=== PATIENT | male | born 1985 | race Caucasian/White ===

== ENCOUNTER 2021-04-11 02:59 | Observation (INO) | payer OTHER ==
[2021-04-11] MEDS ORDERED: VANCOMYCIN IV PER PHARMACY 1 EACH MISC MISCELLANE PRN (03:24)
[2021-04-11] MEDS ORDERED: AMPICILLIN-SULBACTAM 3 GM in SODIUM CHLORIDE 0.9% 100 ML IVPB STA (03:25)
[2021-04-11] MEDS ORDERED: VANCOMYCIN 1,250 MG in SODIUM CHLORIDE 0.9% 250 ML IVPB ONE (04:00)
[2021-04-11 04:17] LABS: Basophils # (A) 0.1 k/uL (0-0.2); Basophils % (A) 1 %; Eosinophils # (A) 0.4 k/uL (0-0.7); Eosinophils % (A) 4 %; HCT 44.9 % (39.0-53.0); HGB 14.6 gm/dL (13.0-17.5); Lymphocytes # (A) 2.6 k/uL (1.0-4.8); Lymphocytes % (A) 26 %; MCH 31.8 pg (25.0-35.0); MCHC 32.5 g/dL (31.0-37.0); MCV 97.6 fL (80.0-100.0); Mean Platelet Volume 7.9; Monocytes # (A) 0.6 k/uL (0-1.0); Monocytes % (A) 6 %; Neutrophils # (A) 6.3 k/uL (1.3-7.7); Neutrophils % (A) 62 %; Platelet Count 284 k/uL (150-450); RDW 13.1 % (11.5-15.5); WBC 10.1 k/uL (3.8-10.6)
[2021-04-11] MEDS ORDERED: MORPHINE SULFATE 4 MG/ML SYRINGE IV STA (04:21)
[2021-04-11] MEDS ORDERED: NALOXONE 0.4 MG/ML 1 ML VIAL IV PRN (04:22)
[2021-04-11] MEDS ORDERED: HYDROcodone/APAP 5-325MG 1 EACH TAB PO PRN (04:22)
[2021-04-11] MEDS ORDERED: ACETAMINOPHEN TAB 325 MG TAB PO PRN (04:22)
[2021-04-11] MEDS ORDERED: ONDANSETRON 4 MG/2 ML VIAL IVP PRN (04:22)
[2021-04-11] MEDS ORDERED: SODIUM CHLORIDE 0.9% 1,000 ML IV SCH (04:30)
[2021-04-11 04:36] LABS: Calcium 8.9 mg/dL (8.4-10.2); Potassium 4.2 mmol/L (3.5-5.1)
[2021-04-11 05:50] LABS: Erythrocyte Sedimentation Rate 8 mm/hr (0-15)
[2021-04-11 08:02] VITALS: BP 111/73; PULSE 71; RESP 16; TEMP 98.7
[2021-04-11] MEDS ORDERED: FAMOTIDINE 20 MG TAB PO SCH (09:00)
[2021-04-11] MEDS ORDERED: VANCOMYCIN 1,250 MG in SODIUM CHLORIDE 0.9% 250 ML IVPB SCH (16:00)
--- NOTE | 2021-04-11 18:08 | P.HPIM ---
History of Present Illness Patient left AGAINST MEDICAL ADVICE and before I had a chance to evaluate the patient Past Medical History Past Medical History: No Reported History History of Any Multi-Drug Resistant Organisms: None Reported Past Surgical History: Appendectomy, Hernia Repair Past Anesthesia/Blood Transfusion Reactions: No Reported Reaction Past Psychological History: No Psychological Hx Reported Smoking Status: Current every day smoker Past Alcohol Use History: None Reported Past Drug Use History: Marijuana Medications and Allergies Home Medications Medication Instructions Recorded Confirmed Type No Known Home Medications 04/11/21 04/11/21 History Allergies Allergy/AdvReac Type Severity Reaction Status Date / Time haloperidol [From Haldol] Allergy Swelling Verified 04/11/21 09:43 Physical Exam Vitals: Vital Signs Temp Pulse Pulse Pulse Resp BP BP 04/11/21 07:00 98.7 F 71 16 111/73 04/11/21 05:00 98.4 F 64 15 131/81 04/11/21 04:42 76 16 122/66 04/11/21 03:01 98.1 F 80 20 125/86 Pulse Ox 04/11/21 07:00 98 04/11/21 05:00 97 04/11/21 04:42 100 04/11/21 03:01 100 Intake and Output 04/11/21 04/11/21 04/11/21 06:59 14:59 22:59 Other: # Voids 0 Weight 74.843 kg Results CBC & Chem 7: 04/11/21 03:45 04/11/21 03:45 Labs: Microbiology - Last 24 Hours (Table) 04/11/21 03:45 Wound Culture - Preliminary Arm - Left Thrombosis Risk Factor Assmnt - Choose All That Apply Any of the Below Risk Factors Present?: No Other Risk Factors: No Other congenital or acquired thrombophilia - If yes, enter type in comment: No Thrombosis Risk Factor Assessment Level: Very Low Risk
--- NOTE | 2021-04-11 18:08 | P.DS ---
Providers Date of admission: 04/11/21 04:22 Attending physician: Raoul Gong Consults: 04/11/21 04:24 Consult Physician Routine Consulting Provider: Nathan Castillo Consult Reason/Comments: Left forearm infection Do you want consulting provider notified?: Yes Primary care physician: Stated None Hospital Course: Patient left AMA Patient Condition at Discharge: Stable Plan - Discharge Summary Discharge Rx Participant: No New Discharge Prescriptions: No Action No Known Home Medications Discharge Medication List No Known Home Medications 04/11/21 [History] Follow up Appointment(s)/Referral(s): None,Stated [Primary Care Provider] - 1 Week Discharge Disposition: Left Against Medical Advice
== END 2021-04-11 11:27 | disposition left against medical advice (07) ==
LOC: EC 02:59 → 6NMEDSUR 04:22
PROVIDERS: ADMIT Internal Medicine; ATTEND Internal Medicine
DX: L08.89 Other specified local infections of the skin and subcutaneous tissue (principal); Z53.21 Procedure and treatment not carried out due to patient leaving prior to being seen by health care provider; F17.200 Nicotine dependence, unspecified, uncomplicated; Z90.49 Acquired absence of other specified parts of digestive tract; Z88.8 Allergy status to other drugs, medicaments and biological substances; Z87.19 Personal history of other diseases of the digestive system; Z86.59 Personal history of other mental and behavioral disorders
CPT/HCPCS: 99284; 96365; 96366; 96375; 36415; 80048; 85652; 83605; 85025; 87040; 87070; 87205; 87077; 87186; G0378; J3370; J2270; J0295

== ENCOUNTER 2021-04-12 05:36 | Observation (INO) | payer OTHER ==
[2021-04-12] MEDS ORDERED: VANCOMYCIN IV PER PHARMACY 1 EACH MISC MISCELLANE PRN (06:17)
[2021-04-12] MEDS ORDERED: VANCOMYCIN 1,250 MG in SODIUM CHLORIDE 0.9% 250 ML IVPB STA (06:18)
[2021-04-12] MEDS ORDERED: AMPICILLIN-SULBACTAM 3 GM in SODIUM CHLORIDE 0.9% 100 ML IVPB STA (06:18)
--- NOTE | 2021-04-12 06:30 | ED ---
Extremity Problem HPI - General Chief complaint: Extremity Problem,Nontraumatic Stated complaint: Recheck lt hand injury Time Seen by Provider: 04/12/21 06:05 Source: patient Mode of arrival: wheelchair - History of Present Illness Initial comments: Patient is a 36-year-old male presenting to the emergency department for a recheck of a wound on his left wrist. Patient was admitted yesterday for the same complaint but he left AMA before he was evaluated by the hospitalist. P atient states his pain has continued in his back and he states he will not leave again. Patient states he noticed this abscess develop about 4-5 days ago, he believes is from a spider bite. Patient was seen at [facility] on 2 separate occasions, they did do an I&D as well as antibiotics. He presented yesterday for increased pain and swelling. He was given some IV antibiotics before he left AMA. He denies any fevers or chills. Denies any chest pain or shortness of breath, no nausea or vomiting. He has no further complaints. His vitals are stable upon arrival, afebrile. - Related Data Home Medications Medication Instructions Recorded Confirmed No Known Home Medications 04/11/21 04/11/21 Allergies Allergy/AdvReac Type Severity Reaction Status Date / Time haloperidol [From Haldol] Allergy Swelling Verified 04/12/21 05:43 Review of Systems ROS Statement: Those systems with pertinent positive or pertinent negative responses have been documented in the HPI. ROS Other: All systems not noted in ROS Statement are negative. Past Medical History Past Medical History: No Reported History History of Any Multi-Drug Resistant Organisms: None Reported Past Surgical History: Appendectomy, Hernia Repair Past Anesthesia/Blood Transfusion Reactions: No Reported Reaction Past Psychological History: No Psychological Hx Reported Smoking Status: Current every day smoker Past Alcohol Use History: None Reported Past Drug Use History: Marijuana General Exam - General Exam Comments Initial Comments: GENERAL: Patient is well-developed and well-nourished. Patient is nontoxic and in no acute distress. HEAD: Atraumatic, normocephalic. EYES: Pupils equal round and reactive to light, extraocular movements intact, sclera anicteric, conjunctiva are normal. Eyelids were unremarkable. LUNGS: Unlabored respirations. Breath sounds clear to auscultation bilaterally and equal. No wheezes rales or rhonchi. HEART: Regular rate and rhythm without murmurs, rubs or gallops. ABDOMEN: Soft, nontender, normoactive bowel sounds. MUSCULOSKELETAL: Normal extremities with adequate strength and normal range of motion, no pitting or edema. No clubbing or cyanosis. NEUROLOGICAL: Patient is alert and oriented x 3. PSYCH: Normal mood, normal affect. SKIN: Warm, Dry, normal turgor, no rashes. Patient has a 3 cm abscess noted to the left wrist with drainage, pain surrounding. There is some mild erythema noted as well. Course Vital Signs 04/12/21 05:40 Temperature 97.6 F Pulse Rate 85 Respiratory 18 Rate Blood Pressure 108/72 O2 Sat by Pulse 98 Oximetry Medical Decision Making - Medical Decision Making Patient is a 36-year-old male here for an abscess to his left wrist for the past 4-5 days. He was seen here yesterday and admitted however he left AMA prior to hospitalist evaluation. He did receive a dose of vanco and Unasyn. Patient states he woke up yesterday and did not realize where he was and wanted to leave. He states he'll not leave this time. He understands that he needs to get this fixed. Patient will be started on IV antibiotics and admitted for surgical consult. Patient accepted by Dr. Gong. Patient is agreeable to this plan of care. Case discussed with Dr. Maldonado. - Lab Data Result diagrams: 04/12/21 06:41 Lab Results 04/12/21 Range/Units 06:41 WBC 8.3 (3.8-10.6) k/uL RBC 4.80 (4.30-5.90) m/uL Hgb 14.8 (13.0-17.5) gm/dL Hct 46.3 (39.0-53.0) % MCV 96.4 (80.0-100.0) fL MCH 30.8 (25.0-35.0) pg MCHC 32.0 (31.0-37.0) g/dL RDW 13.0 (11.5-15.5) % Plt Count 324 (150-450) k/uL MPV 7.4 Neutrophils % 61 % Lymphocytes % 27 % Monocytes % 5 % Eosinophils % 5 % Basophils % 1 % Neutrophils # 5.1 (1.3-7.7) k/uL Lymphocytes # 2.2 (1.0-4.8) k/uL Monocytes # 0.4 (0-1.0) k/uL Eosinophils # 0.4 (0-0.7) k/uL Basophils # 0.1 (0-0.2) k/uL Disposition Clinical Impression: Abscess of skin of left wrist, Failure of outpatient treatment Disposition: ADMITTED IP TO THIS [facility] Condition: Stable Referrals: None,Stated [Primary Care Provider] - 1-2 days Decision Date: 04/12/21 Decision Time: 07:08
[2021-04-12 07:01] LABS: Basophils # (A) 0.1 k/uL (0-0.2); Basophils % (A) 1 %; Eosinophils # (A) 0.4 k/uL (0-0.7); Eosinophils % (A) 5 %; HCT 46.3 % (39.0-53.0); HGB 14.8 gm/dL (13.0-17.5); Lymphocytes # (A) 2.2 k/uL (1.0-4.8); Lymphocytes % (A) 27 %; MCH 30.8 pg (25.0-35.0); MCV 96.4 fL (80.0-100.0); Mean Platelet Volume 7.4; Monocytes # (A) 0.4 k/uL (0-1.0); Monocytes % (A) 5 %; Neutrophils # (A) 5.1 k/uL (1.3-7.7); Neutrophils % (A) 61 %; Platelet Count 324 k/uL (150-450); WBC 8.3 k/uL (3.8-10.6)
[2021-04-12] MEDS ORDERED: NALOXONE 0.4 MG/ML 1 ML VIAL IV PRN (07:05)
[2021-04-12] MEDS ORDERED: traMADol 50 MG TAB PO PRN (07:05)
[2021-04-12] MEDS ORDERED: ONDANSETRON 4 MG/2 ML VIAL IVP PRN (07:05)
[2021-04-12] MEDS ORDERED: ACETAMINOPHEN TAB 325 MG TAB PO PRN (07:05)
[2021-04-12 07:34] LABS: ALT 14 U/L (4-49); AST 23 U/L (17-59); African American GFR (CKD) >90 (>60 ml/min/1.73 sqM); Albumin 3.9 g/dL (3.5-5.0); Alkaline Phosphatase 85 U/L (38-126); Anion Gap 8 mmol/L; Blood Urea Nitrogen 15 mg/dL (9-20); Calcium 9.4 mg/dL (8.4-10.2); Carbon Dioxide 27 mmol/L (22-30); Chloride 103 mmol/L (98-107); Glucose 159 mg/dL (74-99); Non-African American GFR(CKD) >90 (>60 ml/min/1.73 sqM); Potassium 3.9 mmol/L (3.5-5.1); Sodium 138 mmol/L (137-145); Total Bilirubin 0.1 mg/dL (0.2-1.3); Total Protein 6.7 g/dL (6.3-8.2)
[2021-04-12 08:04] LABS: C Reactive Protein 1.4 mg/dL (<1.0)
[2021-04-12 08:31] LABS: Erythrocyte Sedimentation Rate 7 mm/hr (0-15)
[2021-04-12] MEDS ORDERED: KETOROLAC 15 MG/ML 1 ML VIAL IVP PRN (10:20)
[2021-04-12] MEDS: MORPHINE SULFATE 4 MG/ML SYRINGE IVP PRN ×2 (11:08→15:08)
--- NOTE | 2021-04-12 11:37 | P.DS ---
Providers Date of admission: 04/12/21 07:09 Attending physician: Raoul Gong Consults: 04/12/21 07:06 Consult Physician Urgent Consulting Provider: Nathan Castillo Consult Reason/Comments: Abscess of the left wrist, failed outpatient treatment Do you want consulting provider notified?: Yes 04/12/21 11:32 Consult Physician Routine Consulting Provider: Giovani Bates Consult Reason/Comments: Wrist abscess Do you want consulting provider notified?: Yes Primary care physician: Stated None Hospital Course: Patient will 36-year-old male came in with abscess in the left wrist he denied using any IV drugs. 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 Patient had another abscess in one of the right hand web spaces. Because of multiple tattoos I can't really see any needle mueller. Patient was here yesterday for the same thing and left AGAINST MEDICAL ADVICE. apparently had incision and drainage in couple occasions at [facility]. Patient's and says that he doesn't use any drugs. Although his he did get [place] as today I'm ordering a urine drug screen is opiates can be positive because of that reason. Patient denied any history of hepatitis. We'll cultures from abscesses that were done from yesterday are showing MRSA because of which patient was started on vancomycin and consulting infectious disease and surgery was consulted patient has an abscess in the wrist joint area ventral aspect which has active purulent drainage. REVIEW OF SYSTEMS: CONSTITUTIONAL: No fever, no malaise, no fatigue. HEENT: No recent visual problems or hearing problems. Denied any sore throat. CARDIOVASCULAR: No chest pain, orthopnea, PND, no palpitations, no syncope. PULMONARY: No shortness of breath, no cough, no hemoptysis. GASTROINTESTINAL: No diarrhea, no nausea, no vomiting, no abdominal pain. NEUROLOGICAL: No headaches, no weakness, no numbness. HEMATOLOGICAL: Denies any bleeding or petechiae. GENITOURINARY: Denies any burning micturition, frequency, or urgency. MUSCULOSKELETAL/RHEUMATOLOGICAL: Denies any joint pain, swelling, or any muscle pain. ENDOCRINE: Denies any polyuria or polydipsia. The rest of the 14-point review of systems is negative. PHYSICAL EXAMINATION: GENERAL: The patient is alert and oriented x3, not in any acute distress. Well developed, well nourished. HEENT: Pupils are round and equally reacting to light. EOMI. No scleral icterus. No conjunctival pallor. Normocephalic, atraumatic. No pharyngeal erythema. No thyromegaly. CARDIOVASCULAR: S1 and S2 present. No murmurs, rubs, or gallops. PULMONARY: Chest is clear to auscultation, no wheezing or crackles. ABDOMEN: Soft, nontender, nondistended, normoactive bowel sounds. No palpable organomegaly. MUSCULOSKELETAL: No joint swelling or deformity. EXTREMITIES: No cyanosis, clubbing, or pedal edema. NEUROLOGICAL: Gross neurological examination did not reveal any focal deficits. SKIN: Abscess as mentioned above a small abscess with purulent drainage Assessment and plan -Wrist abscess: Denies any evident abuse or any other street drugs. Patient was started on Toradol as well as morphine for pain and patient will continued on vancomycin discussed with Gen. surgery patient will need incision and drainage infectious disease was consulted. Patient doesn't have fever or leukocytosis -Nicotine use: Counseling was provided DVT prophylaxis: Ambulation Patient Condition at Discharge: Stable Plan - Discharge Summary New Discharge Prescriptions: No Action No Known Home Medications Discharge Medication List No Known Home Medications 04/11/21 [History] Follow up Appointment(s)/Referral(s): None,Stated [Primary Care Provider] - 1-2 days
[2021-04-12 11:59] LABS: Amphetamine Screen,Urine Not Detected (NotDetected); Barbiturate Screen,Urine Not Detected (NotDetected); Benzodiazepines Screen,Urine Not Detected (NotDetected); Cocaine Screen,Urine Not Detected (NotDetected); Methadone Screen, Urine Not Detected (NotDetected); Opiate Screen,Urine Detected (NotDetected); Oxycodone Screen, Urine Not Detected (NotDetected); Phencyclidine Screen,Urine Not Detected (NotDetected); Tricyclic Antidepressant,Urine Not Detected (NotDetected); Urn Cannabinoid Scrn Detected (NotDetected)
[2021-04-12 14:48] VITALS: BP 118/61; PULSE 71; RESP 17; TEMP 97.9
[2021-04-12] MEDS ORDERED: VANCOMYCIN 1,250 MG in SODIUM CHLORIDE 0.9% 250 ML IVPB SCH (16:00)
[2021-04-13] MEDS ORDERED: VANCOMYCIN TROUGH DUE 1 EACH MISC MISCELLANE ONE (07:00)
== END 2021-04-12 18:53 | disposition left against medical advice (07) ==
LOC: EC 05:36 → 6NMEDSUR 07:09
PROVIDERS: ADMIT Internal Medicine; ATTEND Internal Medicine
DX: L02.414 Cutaneous abscess of left upper limb (principal); B95.62 Methicillin resistant Staphylococcus aureus infection as the cause of diseases classified elsewhere; F17.200 Nicotine dependence, unspecified, uncomplicated; Z53.29 Procedure and treatment not carried out because of patient's decision for other reasons; Z88.8 Allergy status to other drugs, medicaments and biological substances; Z86.59 Personal history of other mental and behavioral disorders; Z90.49 Acquired absence of other specified parts of digestive tract
CPT/HCPCS: 96376; 96366; 96367; 96375; 96365; 99284; 36415; 80053; 85652; 85025; 86140; 80306; G0378; J3370; J2270; J0295; J1885

== ENCOUNTER 2021-06-20 20:56 | Emergency (ER) | payer OTHER ==
[2021-06-20 21:10] VITALS: BP 152/106; PULSE 68; RESP 18
--- NOTE | 2021-06-20 21:34 | XR ---
EXAMINATION TYPE: XR abdomen acute w cxr DATE OF EXAM: 06/20/2021 COMPARISON: 02/04/2010 HISTORY: Swallowed razor blades TECHNIQUE: 3 views FINDINGS: Heart and mediastinum are normal. Lungs are clear. Bowel gas pattern is normal. There is no sign of intestinal obstruction or pneumoperitoneum. There is small linear metallic density projected over the gastric fundus that could be reasonably foreign body. This measures 12 mm in length. There is slight thoracolumbar levoscoliosis. Bony pelvis is intact. IMPRESSION: Small metallic foreign body in the gastric fundus. Nonacute bowel gas pattern. Normal [address]
--- NOTE | 2021-06-20 22:38 | ED ---
General Adult HPI - General Chief complaint: Psychiatric Symptoms Stated complaint: Swallowed foreign object Time Seen by Provider: 06/20/21 21:19 Source: police Mode of arrival: ambulatory - History of Present Illness Initial comments: This patient is a 36-year-old male transferred here from the [facility] where he had reported to staff that he swallowed a razor blade proximally 2 hours ago now (at 8pm). The patient indicates he is having a little bit of right upper quadrant pain. He states that it is at this point minimal. Denies any worsening or relieving factors. Describes a sharp. No nausea or vomiting. No change in bowel movements or urination. No fever or chills noted. Onset/Timin -: hour(s) Location: abdomen Radiation: non-radiation Quality: sharp Consistency: constant Improves with: none Worsens with: none Associated Symptoms: denies other symptoms Treatments Prior to Arrival: none - Related Data Home Medications Medication Instructions Recorded Confirmed No Known Home Medications 04/11/21 04/12/21 Allergies Allergy/AdvReac Type Severity Reaction Status Date / Time haloperidol [From Haldol] Allergy Swelling Verified 06/20/21 21:10 Review of Systems ROS Statement: Those systems with pertinent positive or pertinent negative responses have been documented in the HPI. ROS Other: All systems not noted in ROS Statement are negative. Constitutional: Denies: fever, chills ENT: Denies: throat pain Respiratory: Denies: cough, dyspnea Cardiovascular: Denies: chest pain, palpitations Gastrointestinal: Reports: as per HPI, abdominal pain. Denies: nausea, vomiting, diarrhea, constipation Genitourinary: Denies: dysuria, hematuria Musculoskeletal: Denies: back pain Skin: Denies: rash Neurological: Denies: headache Hematological/Lymphatic: Denies: easy bleeding Past Medical History Past Medical History: No Reported History History of Any Multi-Drug Resistant Organisms: MRSA Date of last positivie culture/infection: 04/11/21 MDRO Source:: Left Arm Past Surgical History: Appendectomy, Hernia Repair Past Anesthesia/Blood Transfusion Reactions: No Reported Reaction Past Psychological History: No Psychological Hx Reported Smoking Status: Current every day smoker Past Alcohol Use History: None Reported Past Drug Use History: Marijuana General Exam General appearance: alert, in no apparent distress Head exam: Present: atraumatic, normocephalic Eye exam: Present: normal appearance. Absent: scleral icterus, conjunctival injection ENT exam: Present: normal oropharynx Neck exam: Present: normal inspection Respiratory exam: Present: normal lung sounds bilaterally. Absent: respiratory distress, wheezes, rales, rhonchi, stridor Cardiovascular Exam: Present: regular rate, normal rhythm, normal heart sounds. Absent: systolic murmur, diastolic murmur, rubs, gallop GI/Abdominal exam: Present: soft, normal bowel sounds. Absent: distended, tenderness, guarding, rebound, rigid, mass, pulsatile mass Extremities exam: Present: normal inspection, normal capillary refill. Absent: pedal edema, calf tenderness Back exam: Present: normal inspection. Absent: CVA tenderness (R), CVA tenderness (L) Neurological exam: Present: alert Skin exam: Present: warm, dry, intact, normal color. Absent: rash Course Vital Signs 06/20/21 21:06 Pulse Rate 68 Respiratory 18 Rate Blood Pressure 152/106 O2 Sat by Pulse 100 Oximetry Medical Decision Making - Medical Decision Making 36-year-old man reporting that he swallowed razor blade. Patient is sent for plain films which revealed metallic foreign body. Case is discussed with surgery on-call as there is no gastroenterology on-call. They do recommend transfer for EGD. Case also discussed with Dr. Angel as [facility] discussed with [facility] team at [facility] and Dr. Quinones will accept transfer for GI Disposition Clinical Impression: Foreign body in stomach Disposition: OTHER INSTITUTION NOT DEFINED Condition: Fair Is patient prescribed a controlled substance at d/c from ED?: No Referrals: None,Stated [Primary Care Provider] - 1-2 days
== END 2021-06-21 00:10 | disposition other institution (70) ==
LOC: EC 20:56
DX: T18.2XXA Foreign body in stomach, initial encounter (principal); F17.200 Nicotine dependence, unspecified, uncomplicated; F12.90 Cannabis use, unspecified, uncomplicated; Z20.822 Contact with and (suspected) exposure to COVID-19; X58.XXXA Exposure to other specified factors, initial encounter
CPT/HCPCS: 74022; 87635; 99284

== ENCOUNTER 2024-12-04 19:04 | Inpatient (IN) | payer OTHER ==
[2024-12-04] MEDS: LORazepam 2 MG/ML INJ IM STA (19:06)
--- NOTE | 2024-12-04 19:11 | ED ---
Overdose HPI - General Stated Complaint: Overdose Time Seen by Provider: 12/04/24 19:10 Source: RN notes reviewed, old records reviewed Limitations: altered mental status, physical limitation - History of Present Illness Initial Comments: This is a 39-year-old male who allegedly took overdose of Seroquel 70+ pills. Full bottle as a suicide attempt Patient is completely altered here in the emergency department tachycardic aggressive and agitated MD Complaint: intentional overdose -: unknown How Overdose Was Discovered: called family/friend, called 911 Context: Accidental Overdose: wanted to get high Associated Symptoms: depression Treatments Prior to Arrival: none - Related Data Home Medications Medication Instructions Recorded Confirmed Buprenorphine HCl/Naloxone HCl 1 film SL BID 12/04/24 12/04/24 [Suboxone 8 mg-2 mg Sl Film] Venlafaxine HCl [Effexor] 225 mg PO DIRECTED 12/04/24 12/04/24 Vistaril(Unknown Dose) 1 dose PO DIRECTED 12/04/24 12/04/24 Allergies Allergy/AdvReac Type Severity Reaction Status Date / Time haloperidol [From Haldol] Allergy Swelling Verified 12/04/24 20:09 tongue fluphenazine [From Prolixin] AdvReac Unknown Verified 12/08/24 23:20 Review of Systems ROS Statement: Those systems with pertinent positive or pertinent negative responses have been documented in the HPI. ROS Other: All systems not noted in ROS Statement are negative. Past Medical History Past Medical History: No Reported History History of Any Multi-Drug Resistant Organisms: MRSA Date of last positivie culture/infection: 04/11/21 MDRO Source:: Left Arm Past Surgical History: Appendectomy, Hernia Repair Past Anesthesia/Blood Transfusion Reactions: No Reported Reaction Past Psychological History: No Psychological Hx Reported Smoking Status: Current every day smoker Past Alcohol Use History: None Reported Past Drug Use History: Marijuana General Exam Limitations: altered mental status, physical limitation General appearance: alert, anxious, in distress Head exam: Present: atraumatic, normocephalic, normal inspection Eye exam: Present: normal appearance, PERRL, EOMI. Absent: scleral icterus, c onjunctival injection, periorbital swelling ENT exam: Present: normal exam, mucous membranes moist Neck exam: Present: normal inspection. Absent: tenderness, meningismus, lymphadenopathy Respiratory exam: Present: normal lung sounds bilaterally. Absent: respiratory distress, wheezes, rales, rhonchi, stridor Cardiovascular Exam: Present: tachycardia, irregular rhythm, normal heart sounds. Absent: systolic murmur, diastolic murmur, rubs, gallop, clicks GI/Abdominal exam: Present: soft, normal bowel sounds. Absent: distended, tenderness, guarding, rebound, rigid Extremities exam: Present: normal inspection, full ROM, normal capillary refill. Absent: tenderness, pedal edema, joint swelling, calf tenderness Back exam: Present: normal inspection Neurological exam: Present: alert, oriented X3, CN II-XII intact Psychiatric exam: Present: normal affect, normal mood Skin exam: Present: warm, dry, intact, normal color. Absent: rash Course Vital Signs 12/04/24 12/04/24 12/04/24 19:09 19:27 20:45 Temperature 97.7 F Pulse Rate 152 H 126 H Respiratory 22 16 Rate Blood Pressure 126/98 130/90 O2 Sat by Pulse 99 Oximetry 12/04/24 12/04/24 12/04/24 20:57 21:09 21:58 Temperature Pulse Rate 130 H 138 H 138 H Respiratory 18 18 18 Rate Blood Pressure 130/90 130/101 134/90 O2 Sat by Pulse 96 98 98 Oximetry 12/05/24 12/05/24 12/05/24 00:34 01:37 03:39 Temperature 98.8 F 98.5 F Pulse Rate 126 H 111 H 103 H Respiratory 19 17 19 Rate Blood Pressure 136/89 122/79 O2 Sat by Pulse 95 96 95 Oximetry 12/05/24 12/05/24 12/05/24 06:04 08:11 17:10 Temperature 98.4 F 97.6 F 98.5 F Pulse Rate 96 91 89 Respiratory 19 16 16 Rate Blood Pressure 117/75 120/72 112/73 O2 Sat by Pulse 95 97 Oximetry 12/05/24 12/05/24 12/06/24 18:29 20:19 00:10 Temperature 98.6 F 97.9 F Pulse Rate 73 74 61 Respiratory 17 17 Rate Blood Pressure 114/76 111/70 109/78 O2 Sat by Pulse 97 95 96 Oximetry 12/06/24 03:00 Temperature Pulse Rate 64 Respiratory 15 Rate Blood Pressure O2 Sat by Pulse 96 Oximetry - Reevaluation(s) Reevaluation #1: 12/04/24 20:37 Medical records reviewed patient is under petition for suicide attempt Reevaluation #2: 12/04/24 20:37 Patient does have seizure-like activity here in the emergency department After seizure-like activity and postictal state patient was combative Patient currently awake and alert complaining of generalized pain, on methadone Reevaluation #3: 12/04/24 20:38 Patient informed of results questions answered Reevaluation #4: Was pt. sent in by a medical professional or institution (SHERRON Davalos, NURSE LDR, urgent care, hospital, or snf...) When possible be specific @ -no Did you speak to anyone other than the patient for history (EMS, parent, family, police, friend...)? What history was obtained from this source @ -no Did you review nursing and triage notes (agree or disagree)? Why? @ -agree Are old charts reviewed (outside hosp., previous admission, EMS record, old EKG, old radiological studies, urgent care reports/EKG's, snf records)? Report findings @ -yes Differential Diagnosis (chest pain, altered mental status, abdominal pain women, abdominal pain men, vaginal bleeding, weakness, fever, dyspnea, syncope, headache, dizziness, GI bleed, back pain, seizure, CVA, palpatations, mental health, musculoskeletal)? @ -prior EKG interpreted by me (3pts min.). @ -yes X-rays interpreted by me (1pt min.). @ -no CT interpreted by me (1pt min.). @ -no U/S interpreted by me (1pt. min.). @ -no What testing was considered but not performed or refused? (CT, X-rays, U/S, labs)? Why? @ -none What meds were considered but not given or refused? Why? @ -none Did you discuss the management of the patient with other professionals (professionals i.e. SHERRON Davalos, NURSE LDR, lab, RT, psych nurse, psych social worker, uranium processing supervisor, teacher, customs and border protection officer, child welfare caseworker)? Give summary @ -no Was smoking cessation discussed for >3mins.? @ -no Was critical care preformed (if so, how long)? @ -no Were there social determinants of health that impacted care today? How? (Homeles sness, low income, unemployed, alcoholism, drug addiction, transportation, low edu. Level, literacy, decrease access to med. care, [facility], rehab)? @ -none Was there de-escalation of care discussed even if they declined (Discuss DNR or withdrawal of care, Hospice)? DNR status @ -no What co-morbidities impacted this encounter? (DM, HTN, Smoking, COPD, CAD, Cancer, CVA, ARF, Chemo, Hep., AIDS, mental health diagnosis, sleep apnea, morbid obesity)? @ -none Was patient admitted / discharged? Hospital course, mention meds given and route, prescriptions, significant lab abnormalities, going to OR and other pertinent info. @ - 39 male will be admitted for overdose with suicide attempt psychiatric evaluation and monitoring of overdose toxicity seroquel Admitted Undiagnosed new problem with uncertain prognosis? @ -no Drug Therapy requiring intensive monitoring for toxicity (Heparin, Nitro, Insu cayetano, Cardizem)? @ -no Were any procedures done? @ -no Diagnosis/symptom? @ -Overdose suicide attempt toxicity Seroquel Acute, or Chronic, or Acute on Chronic? @ -Acute Uncomplicated (without systemic symptoms) or Complicated (systemic symptoms)? @ -Complicated Side effects of treatment? @ -no Exacerbation, Progression, or Severe Exacerbation? @ -exacerbation Poses a threat to life or bodily function? How? (Chest pain, USA, IA, pneumonia, PE, COPD, DKA, ARF, appy, cholecystitis, CVA, Diverticulitis, Homicidal, Suicidal, threat to staff... and all critical care pts) @ -yes with significant overdose Reevaluation #5: Differential Altered Mental Status: Hypoglycemia, DKA, hypercapnia, ETOH, overdose, CO poisoning, trauma, myxedema coma, HTN encephalopathy, infection, encephalitis, psychosis, intercranial hemorrhage, hepatic encephalopathy, meningitis, CVA, this is not meant to be an all-inclusive list Differential Mental Health Depression, anxiety, bipolar, psychosis, schizophrenia, borderline personality, situational depression, adjustment disorder, behavioral disorder, brain tumor, malingering, substance abuse, encephalopathy, medication reaction, dementia, hypothyroidism, degenerative neurologic disorder, lupus.... This is not meant to be all-inclusive list - Consultations Consultation #1: Spoke with sound who agrees to admit this patient Procedures - Restraint - Face to Face Restraint Occurrence 1 Patient's Immediate Situation: Endangers self safety, Endangers others' safety, Endangers staff safety, Violent behavior Patient's Reaction to the Intervention: Uncooperative, Angry, Hostile, Law igerent, Anxious, Bizarre Patient's Medical & Behavioral Condition: Awake, Anxious, Agitated Need to Continue or Terminate Restraint or Seclusion: Continue Face to Face Eval of Restraint Date: 12/04/24 Face to Face Eval of Restraint Time: 19:35 Medical Decision Making - Medical Decision Making 39 male will be admitted for overdose with suicide attempt psychiatric evaluation and monitoring of overdose toxicity seroquel - Lab Data Result diagrams: 12/05/24 06:42 12/08/24 00:12 Lab Results 12/04/24 12/04/24 12/04/24 Range/Units 19:24 19:50 19:50 WBC 12.0 H (3.8-10.6) k/uL RBC 5.51 (4.30-5.90) m/uL Hgb 17.3 (13.0-17.5) gm/dL Hct 53.2 H (39.0-53.0) % MCV 96.5 (80.0-100.0) fL MCH 31.4 (25.0-35.0) pg MCHC 32.5 (31.0-37.0) g/dL RDW 13.6 (11.5-15.5) % Plt Count (150-450) k/uL MPV 9.8 Neutrophils % (Manual) 43 % Lymphocytes % (Manual) 44 % Monocytes % (Manual) 7 % Eosinophils % (Manual) 6 % Neutrophils # (Manual) 5.16 (1.3-7.7) k/uL Lymphocytes # (Manual) 5.28 H (1.0-4.8) k/uL Monocytes # (Manual) 0.84 (0-1.0) k/uL Eosinophils # (Manual) 0.72 H (0-0.7) k/uL Nucleated RBCs 0 (0-0) /100 WBC Manual Slide Review Performed Large Platelets Present Hypochromasia Moderate Sodium 141 (137-145) mmol/L Potassium 3.6 (3.5-5.1) mmol/L Chloride 103 (98-107) mmol/L Carbon Dioxide 10 L (22-30) mmol/L Anion Gap 28 mmol/L BUN 17 (9-20) mg/dL Creatinine 0.97 (0.66-1.25) mg/dL Est GFR (CKD-EPI)AfAm >90 (>60 ml/min/1.73 sqM) Est GFR (CKD-EPI)NonAf >90 (>60 ml/min/1.73 sqM) Glucose 80 (74-99) mg/dL Calcium 9.9 (8.4-10.2) mg/dL Total Bilirubin 0.7 (0.2-1.3) mg/dL AST 36 (17-59) U/L ALT 37 (4-49) U/L Alkaline Phosphatase 78 (38-126) U/L Creatine Kinase (55-170) U/L Troponin I <0.012 (0.000-0.034) ng/mL Total Protein 9.2 H (6.3-8.2) g/dL Albumin 5.3 H (3.5-5.0) g/dL Lipase 92 (23-300) U/L Salicylates <1.0 mg/dL Acetaminophen <10.0 ug/mL Serum Alcohol <10 mg/dL 12/04/24 Range/Units 19:50 WBC (3.8-10.6) k/uL RBC (4.30-5.90) m/uL Hgb (13.0-17.5) gm/dL Hct (39.0-53.0) % MCV (80.0-100.0) fL MCH (25.0-35.0) pg MCHC (31.0-37.0) g/dL RDW (11.5-15.5) % Plt Count (150-450) k/uL MPV Neutrophils % (Manual) % Lymphocytes % (Manual) % Monocytes % (Manual) % Eosinophils % (Manual) % Neutrophils # (Manual) (1.3-7.7) k/uL Lymphocytes # (Manual) (1.0-4.8) k/uL Monocytes # (Manual) (0-1.0) k/uL Eosinophils # (Manual) (0-0.7) k/uL Nucleated RBCs (0-0) /100 WBC Manual Slide Review Large Platelets Hypochromasia Sodium (137-145) mmol/L Potassium (3.5-5.1) mmol/L Chloride (98-107) mmol/L Carbon Dioxide (22-30) mmol/L Anion Gap mmol/L BUN (9-20) mg/dL Creatinine (0.66-1.25) mg/dL Est GFR (CKD-EPI)AfAm (>60 ml/min/1.73 sqM) Est GFR (CKD-EPI)NonAf (>60 ml/min/1.73 sqM) Glucose (74-99) mg/dL Calcium (8.4-10.2) mg/dL Total Bilirubin (0.2-1.3) mg/dL AST (17-59) U/L ALT (4-49) U/L Alkaline Phosphatase (38-126) U/L Creatine Kinase 184 H (55-170) U/L Troponin I (0.000-0.034) ng/mL Total Protein (6.3-8.2) g/dL Albumin (3.5-5.0) g/dL Lipase (23-300) U/L Salicylates mg/dL Acetaminophen ug/mL Serum Alcohol mg/dL - EKG Data -: EKG Interpreted by Me (EKG sinus tachycardia A-flutter 140 TX 149 QRS 93 QTc 434) Critical Care Time Critical Care Time: Yes Total Critical Care Time: 31 Disposition Clinical Impression: Drug overdose, Suicide attempt, Seizure-like activity Disposition: ADMITTED IP TO THIS HOSP Condition: Stable Is patient prescribed a controlled substance at d/c from ED?: No Time of Disposition: 20:40
[2024-12-04] MEDS: SODIUM CHLORIDE 0.9% 1,000 ML IV STA (19:23)
[2024-12-04] MEDS: MIDAZOLAM 2 MG/2 ML VIAL IM STA (19:26)
[2024-12-04 20:06] LABS: HCT 53.2 % (39.0-53.0); HGB 17.3 gm/dL (13.0-17.5); Hypochromasia Moderate; MCH 31.4 pg (25.0-35.0); MCHC 32.5 g/dL (31.0-37.0); MCV 96.5 fL (80.0-100.0); Mean Platelet Volume 9.8; RBC 5.51 m/uL (4.30-5.90); RDW 13.6 % (11.5-15.5)
[2024-12-04 20:15] LABS: AST 36 U/L (17-59); Acetaminophen <10.0 ug/mL; African American GFR (CKD) >90 (>60 ml/min/1.73 sqM); Albumin 5.3 g/dL (3.5-5.0); Alcohol <10 mg/dL; Alkaline Phosphatase 78 U/L (38-126); Anion Gap 28 mmol/L; Blood Urea Nitrogen 17 mg/dL (9-20); Calcium 9.9 mg/dL (8.4-10.2); Carbon Dioxide 10 mmol/L (22-30); Chloride 103 mmol/L (98-107); Glucose 80 mg/dL (74-99); Lipase 92 U/L (23-300); Non-African American GFR(CKD) >90 (>60 ml/min/1.73 sqM); Potassium 3.6 mmol/L (3.5-5.1); Salicylate <1.0 mg/dL; Sodium 141 mmol/L (137-145); Total Bilirubin 0.7 mg/dL (0.2-1.3); Total Protein 9.2 g/dL (6.3-8.2)
[2024-12-04 20:23] LABS: ALT 37 U/L (4-49)
[2024-12-04] MEDS: ONDANSETRON 4 MG/2 ML VIAL IVP STA (20:28)
[2024-12-04] MEDS ORDERED: NALOXONE 0.4 MG/ML 1 ML VIAL IV PRN (20:33)
[2024-12-04 20:51] LABS: Eosinophils # (M) 0.72 k/uL (0-0.7); Lymphocytes # (M) 5.28 k/uL (1.0-4.8); Monocytes # (M) 0.84 k/uL (0-1.0); Neutrophils # (M) 5.16 k/uL (1.3-7.7); Neutrophils % (M) 43 %; Nucleated Red Blood Cells 0 /100 WBC (0-0); Total Cells Counted 100
[2024-12-04 20:52] LABS: Large Platelets Present
[2024-12-04 21:17] LABS: VBG PH 7.41 (7.31-7.41)
[2024-12-04 21:38] LABS: African American GFR (CKD) >90 (>60 ml/min/1.73 sqM); Anion Gap 16 mmol/L; Blood Urea Nitrogen 20 mg/dL (9-20); Calcium 9.2 mg/dL (8.4-10.2); Carbon Dioxide 17 mmol/L (22-30); Chloride 105 mmol/L (98-107); Glucose 75 mg/dL (74-99); Non-African American GFR(CKD) >90 (>60 ml/min/1.73 sqM); Sodium 138 mmol/L (137-145)
--- NOTE | 2024-12-04 21:50 | P.HPIM ---
History of Present Illness H&P Date: 12/04/24 Patient is a 39-year-old male with anxiety/depression presenting to the ED with suicide attempt by overdose. Patient states he is taking over 70+ pills of Effexor. When asked patient is still admits to suicidal ideation. He states he is previously attempted to overdose in the past by consuming pills. States he just got out of long term and does not want to live anymore. Patient admits to smoking marijuana. He is a [id number] smoker. Denies any alcohol use. Admits to having some abdominal pain. Admits to nausea and nonbloody emesis. Patient denies any fever, chills, night sweats, chest pain, heart palpitations, shortness of breath. T 97.9 F, WA 152, RR 22, BP 126/98, O2 sat 99% on 2 L nasal cannula Review of systems: Pertinent positives and negatives as discussed in HPI, a complete review of systems was performed and all other systems are negative. Physical examination: Vital signs reviewed General: non toxic, no distress, appears at stated age, normal weight Derm: no unusual rashes/lesions, warm Head: atraumatic, normocephalic, symmetric Eyes: EOMI, anicteric sclera, pupils equal round reactive to light ENT: Nose and ears atraumatic Mouth: no lip lesion, mucus membranes moist Cardiovascular: S1S2 reg, no murmur, positive dorsalis pedis pulse bilateral, no edema Lungs: CTA bilateral, no rhonchi, no rales, no accessory muscle use Abdominal: soft, tender to palpation, no guarding Ext: muscle strength 5 out of 5 in all 4 extremities grossly, no gross muscle atrophy Neuro: CN II-XI grossly intact, no gross focal neuro deficits Psych: Alert, oriented to person, place, and time Assessment/Plan: Patient is a 39-year-old male with anxiety/depression presenting to the ED with suicide attempt by overdose. ED documentation reviewed. Discussed with patient. The patient is admitted with an anticipated greater than 2 midnight stay for evaluation of overdose due to attempted suicide. #. Overdose on Effexor in apparent suicide attempt #. Anion gap metabolic acidosis Currently admits to suicidal ideation CO2 10, anion gap 28, BUN 17, creatinine 0.97, lactic acid 1.9, creatine kinase 184 WBC 12.0 likely reactive Toxicology: Salicylates, acetaminophen, serum alcohol within normal limit UDS, UA pending S/p Valium 5 mg IVP, lorazepam 2 mg IM, Versed 5 mg IM Ativan 1mg IV q4hr prn S/p 1 L normal saline bolus LR at 50 cc/hr Cardiac telemetry Psych consult suicide precautions DVT prophylaxis: Lovenox 40 SQ daily CODE STATUS: Full code Anticipated discharge place: Pending clinical course Chika Horner MD PGY-1 IM Dictation was produced using [employer] dictation software. please excuse any grammatical, word or spelling errors. I have seen and evaluated the patient today. I Discussed the case with the resident and agree with the resident's findings I edited the assessment and plan as necessary as documented in the resident's note. Past Medical History Past Medical History: No Reported History History of Any Multi-Drug Resistant Organisms: MRSA Date of last positivie culture/infection: 04/11/21 MDRO Source:: Left Arm Past Surgical History: Appendectomy, Hernia Repair Past Anesthesia/Blood Transfusion Reactions: No Reported Reaction Past Psychological History: No Psychological Hx Reported Smoking Status: Current every day smoker Past Alcohol Use History: None Reported Past Drug Use History: Marijuana Medications and Allergies Home Medications Medication Instructions Recorded Confirmed Type Buprenorphine HCl/Naloxone HCl 1 film SL BID 12/04/24 12/04/24 History [Suboxone 8 mg-2 mg Sl Film] Venlafaxine HCl [Effexor] 225 mg PO DIRECTED 12/04/24 12/04/24 History Vistaril(Unknown Dose) 1 dose PO DIRECTED 12/04/24 12/04/24 History Allergies Allergy/AdvReac Type Severity Reaction Status Date / Time haloperidol [From Haldol] Allergy Swelling Verified 12/04/24 20:09 tongue Physical Exam Vitals: Vital Signs Temp Pulse Resp BP Pulse Ox 12/04/24 21:09 138 H 18 130/101 98 12/04/24 20:57 130 H 18 130/90 96 12/04/24 20:45 126 H 16 130/90 99 12/04/24 19:27 97.7 F 12/04/24 19:09 152 H 22 126/98 Intake and Output 12/04/24 12/04/24 12/04/24 06:59 14:59 22:59 Other: Weight 90.718 kg Results CBC & Chem 7: 12/04/24 19:24 12/04/24 21:09 Labs: Abnormal Lab Results - Last 24 Hours (Table) 12/04/24 12/04/24 Range/Units 19:24 19:50 WBC 12.0 H (3.8-10.6) k/uL Hct 53.2 H (39.0-53.0) % Lymphocytes # (Manual) 5.28 H (1.0-4.8) k/uL Eosinophils # (Manual) 0.72 H (0-0.7) k/uL Carbon Dioxide 10 L (22-30) mmol/L Total Protein 9.2 H (6.3-8.2) g/dL Albumin 5.3 H (3.5-5.0) g/dL
[2024-12-04] MEDS: MORPHINE SULFATE 4 MG/ML SYRINGE IV PRN (21:53)
[2024-12-04] MEDS: ONDANSETRON 4 MG/2 ML VIAL IVP PRN (21:54)
[2024-12-04] MEDS: LORazepam 2 MG/ML INJ IV PRN (23:42)
[2024-12-04 23:48] LABS: Appearance,Urine Clear (Clear); Bilirubin,Urine Negative (Negative); Blood,Urine Negative (Negative); Color,Urine Yellow; Glucose,Urine (UA) Negative (Negative); Ketones,Urine 1+ (Negative); Leukocyte Esterase,Urine Negative (Negative); Nitrite,Urine Negative (Negative); PH, Urine 5.5 (5.0-8.0); Protein,Urine Trace (Negative); Urobilinogen,Urine <2.0 mg/dL (<2.0)
[2024-12-05 00:01] LABS: Amphetamine Screen,Urine Not Detected (NotDetected); Cocaine Screen,Urine Not Detected (NotDetected); Opiate Screen,Urine Detected (NotDetected); Phencyclidine Screen,Urine Detected (NotDetected)
[2024-12-05 00:02] LABS: Barbiturate Screen,Urine Not Detected (NotDetected); Benzodiazepines Screen,Urine Detected (NotDetected); Methadone Screen, Urine Not Detected (NotDetected); Oxycodone Screen, Urine Not Detected (NotDetected); Tricyclic Antidepressant,Urine Not Detected (NotDetected); Urn Cannabinoid Scrn Detected (NotDetected)
[2024-12-05] MEDS: LACTATED RINGERS 1,000 ML IV SCH (00:29)
[2024-12-05 07:12] LABS: ALT 42 U/L (4-49); AST 159 U/L (17-59); African American GFR (CKD) >90 (>60 ml/min/1.73 sqM); Albumin 4.6 g/dL (3.5-5.0); Alkaline Phosphatase 80 U/L (38-126); Anion Gap 12 mmol/L; Blood Urea Nitrogen 16 mg/dL (9-20); Carbon Dioxide 20 mmol/L (22-30); Chloride 104 mmol/L (98-107); Glucose 65 mg/dL (74-99); Magnesium 2.4 mg/dL (1.6-2.3); Non-African American GFR(CKD) >90 (>60 ml/min/1.73 sqM); Phosphorus 3.6 mg/dL (2.5-4.5); Potassium 4.3 mmol/L (3.5-5.1); Sodium 136 mmol/L (137-145); Total Bilirubin 0.9 mg/dL (0.2-1.3); Total Protein 8.1 g/dL (6.3-8.2)
[2024-12-05 07:13] LABS: Basophils % (A) 0 %; Eosinophils % (A) 0 %; HCT 42.6 % (39.0-53.0); Lymphocytes # (A) 1.1 k/uL (1.0-4.8); Lymphocytes % (A) 13 %; MCH 30.5 pg (25.0-35.0); MCHC 32.8 g/dL (31.0-37.0); MCV 93.1 fL (80.0-100.0); Mean Platelet Volume 7.2; Monocytes # (A) 0.6 k/uL (0-1.0); Monocytes % (A) 7 %; Neutrophils # (A) 6.6 k/uL (1.3-7.7); Neutrophils % (A) 78 %; Platelet Count 267 k/uL (150-450); RBC 4.58 m/uL (4.30-5.90); RDW 13.6 % (11.5-15.5); WBC 8.4 k/uL (3.8-10.6)
[2024-12-05] MEDS: PANTOPRAZOLE 40 MG/10 ML VIAL IV SCH (08:34)
[2024-12-05] MEDS: ENOXAPARIN 40 MG/0.4 ML SYRINGE SQ SCH (08:36)
[2024-12-05 12:28] LABS: Glucose,Whole Blood 63 mg/dL (70-110)
[2024-12-05] MEDS ORDERED: haloperidoL 5 MG TAB PO PRN (13:17)
[2024-12-05] MEDS ORDERED: HALOPERIDOL LACTATE 5 MG/ML 1 ML VIAL IM PRN (13:17)
--- NOTE | 2024-12-05 13:25 | P.CN ---
Psychiatric Consult - . Consult date: 12/05/24 Consult:: 12/05/24 11:30 IDENTIFYING DATA: This patient is a 39-year-old male, he is he has 3 kids REASON FOR REFERRAL: Psychiatry was consulted for suicide attempt overdose. HISTORY OF PRESENT ILLNESS: The patient presented to the hospital on 12/04 after an overdose on Effexor, it was noted that he took over 70 pills. Patient was having altered mental status, tachycardic aggressive agitated in the ER. Apparently family called 911 to bring to the hospital. Patient apparently was having seizure-like movements in the ER needed restraints. Patient was petition by police stated that patient overdosed in a suicide attempt. Patient had a urine drug screen which is positive for opiates phencyclidine benzodiazepines and THC. Blood alcohol level was negative. Patient was admitted medically for metabolic acidosis. According to nurse claims that Poison control has been contacted and patient is still being observed. Patient was seen laying in bed today had a one-to-one sitter. He was fairly lethargic, minimally cooperative. He was fairly concrete, only gave some answers. He was restless at times moving suddenly in the bed. He denied overdosing, denied any depression. At this time he is denying any suicidal homicidal ideations intent or plan. Patient denies any auditory, visual hallucinations. He was a poor historian. Patient did not admit to using any recreational drugs The rest of patient's psychiatric and social history were fairly limited due to patient's altered mental status PAST PSYCHIATRIC HISTORY: Patient has a a history of polysubstance abuse and depression. Patient is currently on Effexor and Suboxone. Unable to gather further psychiatric history. PAST MEDICAL HISTORY: As per medical H&P. ALLERGIES: as per EMR. CHEMICAL DEPENDENCY HISTORY: as per HPI. FAMILY PSYCHIATRIC/SUBSTANCE USE HISTORY: Unable to gather SOCIAL HISTORY: Patient is has 3 kids. Apparently patient is on probation. Unable to gather further information MENTAL STATUS EXAM: General Appearance: Patient appears to be several tattoos, disheveled appearance, stated age is fairly lethargic and uncooperative e. Patient appears to have poor hygiene and grooming wearing hospital gown with poor eye contact. Behavior: Patient is calmly lying in bed without any agitated behavior. Restless at times Speech: Patient's speech is minimal, mumbling Mood/Affect: Patient reports their mood is "ok", affect is congruent and constricted Suicidality/Homicidality: Patient denies having any suicidal or homicidal ideation intent or plan. Perceptions: Patient denies any visual hallucinations and denies any auditory hallucinations Though content/process: [place], poverty of content. Memory and concentration: AOX1, patient only knows his name at this time. Poor attention span. Cannot spell "WORLD" backwards Judgment and insight: Poor/impulsive IMPRESSIONS: Delirium likely secondary to medication overdose toxic metabolic Likely suicide attempt secondary to overdose on psychotropic medications Depressive disorder unspecified Cannabis use disorder Legal problems PLAN: -At this time patient DOES meet criteria for inpatient psychiatric admission however only once patient is thoroughly medically cleared, continue following poison control recommendations and monitoring. -Delirium precautions recommended with patient including - avoiding use of narcotics and DICE TABLE OPERATOR sedatives, limit anticholinergic medications when possible, frequent re-orientation, minimize use of restraints, open window shades during the day and close them at night -Would recommend the following medication changes/additions: Haldol and Ativan as needed for severe agitation and aggression -Continue 1:1 sitter for safety until patient is safely transferred to the mental health unit -Cannot leave AMA at this time. Patient will need a petition and certification if attempting to leave AMA. -When medically stable, patient is eligible for transfer to a psych bed when available. -Communicated plan to patient's nurse -Psychiatry will sign off at this time -Please contact with any questions. 12/05/24 13:18
[2024-12-05] MEDS: DEXTROSE 5%-0.9% NACL 1,000 ML IV SCH (13:26)
--- NOTE | 2024-12-05 13:38 | P.PN ---
Subjective Progress Note Date: 12/05/24 39 year old M with PMH anxiety and depression presents to the ED for suicidal ideation and overdose on apparent 70+ Effexor tablets. In the ED he underwent extensive evaluation. T 97.9 F, MS 152, RR 22, BP 126/98, O2 sat 99% on 2 L nasal cannula. CBC, CMP significant for WBC 12, Hct 53.2, bicarb 17, AST 159, alb 5.3. CPK 184. Lactic acid 1.9. Mag 2.4. Phos 3.6. EKG sinus tachycardia rate of 140 with nonspecific T wave changes. UA trace protein 1+ ketones. UDS + opiates, PCP, benzo, THC. Salicylate and Acetaminophen neg. EtOH neg. He has been admitted for further workup and management. 12/05 Patient was seen and examined. He is lethargic but easily arousable. He reports feeling like "shit" unable to elaborate more. CBC and CMP significant for Na 136, bicarb 20, glu 65, AST 159. Mag 2.4. Vitals: BP 120/72, T 97.6F, HR 91, RR 16, 95% on RA General: non toxic, no distress, appears at stated age Derm: warm, dry Head: atraumatic, normocephalic, symmetric Mouth: no lip lesion, mucus membranes moist Cardiovascular: S1S2 tachy, no murmur Lungs: Decreased BS bilaterally, no rales , no accessory muscle use Ext: no gross muscle atrophy, no edema, no contractures Neuro: no focal neuro deficits Psych: Lethargic but easily arousable Based on my assessment of this patient, this patient meets a high complexity level of care. Acute metabolic encephalopathy secondary to Effexor overdose Metabolic acidosis Hypoglycemia Transaminitis Suicidal ideation Suicidal precautions and 1:1 sitter. Start D5 NS at 75 cc/hr for hypoglycemia. Telemetry monitoring. Ativan 1 mg IV Q4H PRN agitation. Seizure and Fall precautions. Psychiatry on board. CODE STATUS: FULL CODE. DVT Prophylaxis: GI Prophylaxis: Protonix IV Designated medical POA if patient is not able to make medical decisions for themselves: I have reviewed the following lead consultant notes: Psyc I have reviewed the results of the following tests: CBC, CMP. I have ordered the following tests: CMP in the AM. I have discussed the care of this patient with the following independent historian: Poison control. I have independently interpreted the following test below: I have discussed the management of this patient with the following physician: Objective - Vital Signs Vital signs: Vital Signs Temp 97.6 F 12/05/24 08:11 Pulse 91 12/05/24 08:11 Resp 16 12/05/24 08:11 BP 120/72 12/05/24 08:11 Pulse Ox 95 12/05/24 06:04 FiO2 Intake & Output 12/04/24 12/05/24 12/05/24 18:59 06:59 18:59 Output Total 978 Balance -978 Weight 90.718 kg Output: Urine 489 Straight 489 Post Void Residual 489 - Labs CBC & Chem 7: 12/05/24 06:42 12/05/24 06:42 Labs: Abnormal Lab Results - Last 24 Hours (Table) 12/04/24 12/04/24 12/04/24 Range/Units 19:24 19:50 19:50 WBC 12.0 H (3.8-10.6) k/uL Hct 53.2 H (39.0-53.0) % Lymphocytes # (Manual) 5.28 H (1.0-4.8) k/uL Eosinophils # (Manual) 0.72 H (0-0.7) k/uL VBG pCO2 (37-51) mmHg VBG HCO3 (24-28) mmol/L Sodium (137-145) mmol/L Carbon Dioxide 10 L (22-30) mmol/L Glucose (74-99) mg/dL POC Glucose (mg/dL) (70-110) mg/dL Magnesium (1.6-2.3) mg/dL AST (17-59) U/L Creatine Kinase 184 H (55-170) U/L Total Protein 9.2 H (6.3-8.2) g/dL Albumin 5.3 H (3.5-5.0) g/dL Urine Protein (Negative) Urine Ketones (Negative) Urine Opiates Screen (NotDetected) Ur Phencyclidine Scrn (NotDetected) U Benzodiazepines Scrn (NotDetected) U Marijuana (THC) Screen (NotDetected) 12/04/24 12/04/24 12/04/24 Range/Units 21:09 21:10 23:30 WBC (3.8-10.6) k/uL Hct (39.0-53.0) % Lymphocytes # (Manual) (1.0-4.8) k/uL Eosinophils # (Manual) (0-0.7) k/uL VBG pCO2 35 L (37-51) mmHg VBG HCO3 23 L (24-28) mmol/L Sodium (137-145) mmol/L Carbon Dioxide 17 L (22-30) mmol/L Glucose (74-99) mg/dL POC Glucose (mg/dL) (70-110) mg/dL Magnesium (1.6-2.3) mg/dL AST (17-59) U/L Creatine Kinase (55-170) U/L Total Protein (6.3-8.2) g/dL Albumin (3.5-5.0) g/dL Urine Protein (Negative) Urine Ketones (Negative) Urine Opiates Screen Detected H (NotDetected) Ur Phencyclidine Scrn Detected H (NotDetected) U Benzodiazepines Scrn Detected H (NotDetected) U Marijuana (THC) Screen Detected H (NotDetected) 12/04/24 12/05/24 12/05/24 Range/Units 23:30 06:42 12:25 WBC (3.8-10.6) k/uL Hct (39.0-53.0) % Lymphocytes # (Manual) (1.0-4.8) k/uL Eosinophils # (Manual) (0-0.7) k/uL VBG pCO2 (37-51) mmHg VBG HCO3 (24-28) mmol/L Sodium 136 L (137-145) mmol/L Carbon Dioxide 20 L (22-30) mmol/L Glucose 65 L (74-99) mg/dL POC Glucose (mg/dL) 63 L (70-110) mg/dL Magnesium 2.4 H (1.6-2.3) mg/dL AST 159 H (17-59) U/L Creatine Kinase (55-170) U/L Total Protein (6.3-8.2) g/dL Albumin (3.5-5.0) g/dL Urine Protein Trace H (Negative) Urine Ketones 1+ H (Negative) Urine Opiates Screen (NotDetected) Ur Phencyclidine Scrn (NotDetected) U Benzodiazepines Scrn (NotDetected) U Marijuana (THC) Screen (NotDetected)
[2024-12-05 17:32] LABS: Glucose,Whole Blood 80 mg/dL (70-110)
[2024-12-05 20:15] LABS: Glucose,Whole Blood 84 mg/dL (70-110)
[2024-12-06 06:37] LABS: Glucose,Whole Blood 116 mg/dL (70-110)
[2024-12-06 07:36] LABS: ALT 46 U/L (4-49); AST 188 U/L (17-59); African American GFR (CKD) >90 (>60 ml/min/1.73 sqM); Albumin 3.7 g/dL (3.5-5.0); Alkaline Phosphatase 63 U/L (38-126); Anion Gap 7 mmol/L; Blood Urea Nitrogen 10 mg/dL (9-20); Calcium 8.5 mg/dL (8.4-10.2); Carbon Dioxide 27 mmol/L (22-30); Chloride 103 mmol/L (98-107); Glucose 120 mg/dL (74-99); Non-African American GFR(CKD) >90 (>60 ml/min/1.73 sqM); Sodium 137 mmol/L (137-145); Total Bilirubin 0.9 mg/dL (0.2-1.3); Total Protein 6.9 g/dL (6.3-8.2)
[2024-12-06 07:38] LABS: Potassium 3.7 mmol/L (3.5-5.1)
[2024-12-06] MEDS ORDERED: flUPHENAZine 2.5 MG/ML (MDV) 10 ML VIAL IM PRN (11:23)
[2024-12-06 12:02] LABS: Glucose,Whole Blood 95 mg/dL (70-110)
--- NOTE | 2024-12-06 13:19 | P.PN ---
Subjective Progress Note Date: 12/06/24 39 year old M with PMH anxiety and depression presents to the ED for suicidal ideation and overdose on apparent 70+ Effexor tablets. In the ED he underwent extensive evaluation. T 97.9 F, RI 152, RR 22, BP 126/98, O2 sat 99% on 2 L nasal cannula. CBC, CMP significant for WBC 12, Hct 53.2, bicarb 17, AST 159, alb 5.3. CPK 184. Lactic acid 1.9. Mag 2.4. Phos 3.6. EKG sinus tachycardia rate of 140 with nonspecific T wave changes. UA trace protein 1+ ketones. UDS + opiates, PCP, benzo, THC. Salicylate and Acetaminophen neg. EtOH neg. He has been admitted for further workup and management. 12/06 Patient was seen and examined. Much more awake and alert. Reports upset stomach. Sitter at bedside. EKG done today shows NSR with QTC of 449. CMP significant for Cr 0.59, glu 120, AST 188. Vitals: BP 98/56, T 98.4F, HR 59, RR 16, 93% on RA General: non toxic, no distress, appears at stated age Derm: warm, dry Head: atraumatic, normocephalic, symmetric Mouth: no lip lesion, mucus membranes moist Cardiovascular: S1S2 reg, no murmur Lungs: Decreased BS bilaterally, no rales , no accessory muscle use Ext: no gross muscle atrophy, no edema, no contractures Neuro: no focal neuro deficits Psych: Alert and oriented Based on my assessment of this patient, this patient meets a high complexity level of care. Acute metabolic encephalopathy secondary to Effexor overdose Metabolic acidosis Hypoglycemia Transaminitis Suicidal ideation Suicidal precautions and 1:1 sitter. Continue D5 NS at 75 cc/hr for hypoglycemia. Telemetry monitoring. Ativan 1 mg IV Q4H PRN agitation. Seizure and Fall precautions. Repeat CMP in the AM. Repeat EKG in the AM. Psychiatry on board. CODE STATUS: FULL CODE. DVT Prophylaxis: GI Prophylaxis: Protonix IV Designated medical POA if patient is not able to make medical decisions for themselves: I have reviewed the following territory sales consultant notes: Psyc recommends inpatient Psyc. I have reviewed the results of the following tests: CMP. I have ordered the following tests: CMP in the AM. I have discussed the care of this patient with the following independent historian: I have independently interpreted the following test below: EKG I have discussed the management of this patient with the following physician: Objective - Vital Signs Vital signs: Vital Signs Temp 98.4 F 12/06/24 12:30 Pulse 59 L 12/06/24 12:30 Resp 16 12/06/24 12:30 BP 98/56 12/06/24 12:30 Pulse Ox 93 L 12/06/24 03:32 FiO2 Intake & Output 12/05/24 12/06/24 12/06/24 18:59 06:59 18:59 Intake Total 118 Balance 118 Weight 83.4 kg Intake: Oral 118 Other: Voiding Method Toilet - Labs CBC & Chem 7: 12/05/24 06:42 12/06/24 06:36 Labs: Abnormal Lab Results - Last 24 Hours (Table) 12/06/24 12/06/24 Range/Units 06:35 06:36 Creatinine 0.59 L (0.66-1.25) mg/dL Glucose 120 H (74-99) mg/dL POC Glucose (mg/dL) 116 H (70-110) mg/dL AST 188 H (17-59) U/L
[2024-12-06 16:18] LABS: Amylase 118 U/L (30-110); Lipase 659 U/L (23-300)
[2024-12-06 16:59] LABS: Glucose,Whole Blood 108 mg/dL (70-110)
[2024-12-06] MEDS: MORPHINE SULFATE 4 MG/ML SYRINGE IVP PRN (20:00)
[2024-12-06 21:08] LABS: Glucose,Whole Blood 96 mg/dL (70-110)
[2024-12-07 06:08] LABS: Glucose,Whole Blood 86 mg/dL (70-110)
[2024-12-07 11:15] LABS: Glucose,Whole Blood 131 mg/dL (70-110)
--- NOTE | 2024-12-07 14:07 | CT ---
EXAMINATION TYPE: CT abdomen pelvis w con CT DLP: 804.4 mGycm, Automated exposure control for dose reduction was used. DATE OF EXAM: 12/07/2024 1:58 PM COMPARISON: Acute abdominal series 06/20/2021 CLINICAL INDICATION:Male, 39 years old with history of Abdominal pain, elevated lipase; ABDOMINAL MARCIO N, INCREASED LIPASE LEVELS TECHNIQUE: Standard CT of the abdomen and pelvis following the administration of 100 cc of Isovue 3 00 IV contrast material and oral contrast. Coronal and sagittal reformats were performed. FINDINGS: LOWER CHEST: Left lower lobe linear scarring and/or atelectasis. ABDOMEN LIVER: Unremarkable GALLBLADDER AND BILE DUCTS: Unremarkable. PANCREAS: Unremarkable. No pancreatic ductal dilatation or surrounding inflammatory changes. Pancreas enhances homogeneously without focal lesion. No surrounding fluid collections. No parenchymal calcif ications. SPLEEN: Unremarkable. ADRENAL GLANDS: Unremarkable. KIDNEYS AND URETERS: No evidence of hydronephrosis or renal calculus. The venous hands symmetrically. Contrast is demonstrated within both collecting systems and proximal ureters on the delayed phase. PELVIS BLADDER: Unremarkable REPRODUCTIVE: Unremarkable. ABDOMEN & PELVIS STOMACH AND BOWEL: Small hiatal hernia, duodenum is unremarkable. No focal bowel wall thickening or s urrounding inflammatory changes. The appendix is not definitively visualized however there is no sign ificant inflammatory changes within the right lower quadrant. No evidence of bowel obstruction. PERITONEUM: No evidence of pneumoperitoneum or free fluid. VASCULATURE: No evidence of aortic aneurysm. Portal venous system is patent. Few pelvic phleboliths. MUSCULOSKELETAL: No acute osseous abnormalities LYMPH NODES: No evidence for lymphadenopathy. SOFT TISSUE/ABDOMINAL WALL: Few foci of gas within the right anterior abdominal subcutaneous tissues likely related to medication injection. Small fat filled umbilical hernia with additional anterior ve ntral wall at midline and supraumbilical midline fat filled hernias with defects measuring approximat shon 5 to 7 mm. IMPRESSION: 1. No CT evidence for acute abdominal/pelvic process. 2. Couple of ventral abdominal wall fat-containing hernias. [facility], , 12/07/2024 2:05 PM
[2024-12-07 16:19] LABS: Glucose,Whole Blood 98 mg/dL (70-110)
--- NOTE | 2024-12-07 16:47 | P.PN ---
Subjective Progress Note Date: 12/07/24 Principal diagnosis: Intentional overdose Hospital Course:  The patient is a 39 year old M with PMH anxiety and depression presents to the ED for suicidal ideation and overdose on apparent 70+ Effexor tablets. In the ED he underwent extensive evaluation. T 97.9 F, NV 152, RR 22, BP 126/98, O2 sat 99% on 2 L nasal cannula. CBC, CMP significant for WBC 12, Hct 53.2, bicarb 17, AST 159, alb 5.3. CPK 184. Lactic acid 1.9. Mag 2.4. Phos 3.6. EKG sinus tachycardia rate of 140 with nonspecific T wave changes. UA trace protein 1+ ketones. UDS + opiates, PCP, benzo, THC. Salicylate and Acetaminophen neg. EtOH neg. He has been admitted for further workup and management. 12/06 Patient was seen and examined. Much more awake and alert. Reports upset stomach. Sitter at bedside. EKG done today shows NSR with QTC of 449. CMP significant for Cr 0.59, glu 120, AST 188. 12/07 Patient seen and examined at bedside. Complains of diffuse abdominal pain and nausea. Has had decreased appetite. EKG for Qtc currently pending. Noted lipase elevated at 659, amylase 118. Vitals Signs Reviewed. General: non toxic, no distress, appears at stated age Derm: warm, dry Head: atraumatic, normocephalic, symmetric Mouth: no lip lesion, mucus membranes moist Cardiovascular: S1S2 reg, no murmur Lungs: Lungs clear bilaterally, no accessory muscle use Abdomen: Generalized tenderness to palpation, normal bowel sounds, no guarding/ridigity Ext: no gross muscle atrophy, no edema, no contractures Neuro: no focal neuro deficits Psych: Alert and oriented Based on my assessment of this patient, this patient meets a high complexity level of care. Acute metabolic encephalopathy secondary to Effexor overdose Metabolic acidosis, improved Hypoglycemia, improved Transaminitis Elevated lipase/amylase, concern for pancreatitis Suicidal ideation Suicidal precautions in place, 1:1 sitter. Will make NPO Obtain CT Abd/pelvis w contrast to evaluate for pancreatitis Continue D5 NS at 75 cc/hr for hypoglycemia. Telemetry monitoring. Ativan 1 mg IV Q4H PRN agitation. Seizure and Fall precautions. Repeat CMP in the AM. Repeat lipase to ensure downtrend Repeat EKG in the AM. Psychiatry on board, plan for transfer to psych bed once medically stable CODE STATUS: FULL CODE. DVT Prophylaxis: GI Prophylaxis: Protonix Designated medical POA if patient is not able to make medical decisions for themselves: I have reviewed the following practice consultant notes: I have reviewed the results of the following tests: Amylase, Lipase, pending EKG I have ordered the following tests: CMP in the AM, lipase I have discussed the care of this patient with the following independent historian: I have independently interpreted the following test below: EKG I have discussed the management of this patient with the following physician: Objective - Vital Signs Vital signs: Vital Signs Temp 98.4 F 12/07/24 08:15 Pulse 72 12/07/24 16:26 Resp 16 12/07/24 16:26 BP 129/76 12/07/24 16:26 Pulse Ox 97 12/07/24 16:26 FiO2 Intake & Output 12/06/24 12/07/24 12/07/24 18:59 06:59 18:59 Intake Total 568 0 Balance 568 0 Weight 81.7 kg Intake: IV 450 Dextrose 5%-0.9% NaCl 1, 450 000 ml @ 75 mls/hr IV . [id number] INGE Rx#:[id number] Oral 118 0 Other: Voiding Method Toilet # Voids 1 - Labs CBC & Chem 7: 12/05/24 06:42 12/06/24 06:36 Labs: Abnormal Lab Results - Last 24 Hours (Table) 12/07/24 Range/Units 11:11 POC Glucose (mg/dL) 131 H (70-110) mg/dL
[2024-12-07 23:03] LABS: Glucose,Whole Blood 119 mg/dL (70-110)
[2024-12-08 01:34] LABS: ALT 43 U/L (4-49); AST 84 U/L (17-59); African American GFR (CKD) >90 (>60 ml/min/1.73 sqM); Alkaline Phosphatase 63 U/L (38-126); Anion Gap 8 mmol/L; Blood Urea Nitrogen 3 mg/dL (9-20); Calcium 9.1 mg/dL (8.4-10.2); Carbon Dioxide 25 mmol/L (22-30); Chloride 104 mmol/L (98-107); Glucose 104 mg/dL (74-99); Lipase 89 U/L (23-300); Non-African American GFR(CKD) >90 (>60 ml/min/1.73 sqM); Potassium 3.5 mmol/L (3.5-5.1); Sodium 137 mmol/L (137-145); Total Bilirubin 0.7 mg/dL (0.2-1.3); Total Protein 7.1 g/dL (6.3-8.2)
[2024-12-08 06:05] LABS: Glucose,Whole Blood 102 mg/dL (70-110)
[2024-12-08] MEDS ORDERED: HYDROcodone/APAP 5-325MG 1 EACH TAB PO PRN (13:43)
--- NOTE | 2024-12-08 13:45 | P.PN ---
Subjective Progress Note Date: 12/08/24 39 year old M with PMH anxiety and depression presents to the ED for suicidal ideation and overdose on apparent 70+ Effexor tablets. In the ED he underwent extensive evaluation. T 97.9 F, IN 152, RR 22, BP 126/98, O2 sat 99% on 2 L nasal cannula. CBC, CMP significant for WBC 12, Hct 53.2, bicarb 17, AST 159, alb 5.3. CPK 184. Lactic acid 1.9. Mag 2.4. Phos 3.6. EKG sinus tachycardia rate of 140 with nonspecific T wave changes. UA trace protein 1+ ketones. UDS + opiates, PCP, benzo, THC. Salicylate and Acetaminophen neg. EtOH neg. He has been admitted for further workup and management. 12/07 Patient was seen and examined. Much more awake and alert. He reports RLQ pain and requesting pain medications. EKG done yesterday showed NSR with QTC of 427. CMP significant for 3, Cr 0.64, glu 104, AST 84. Lipase 89. CT AP shows some ventral hernias with no acute process. Vitals: BP 133/78, T 98.1F, HR 78, RR 16, 100% on RA General: non toxic, no distress, appears at stated age Derm: warm, dry Head: atraumatic, normocephalic, symmetric Mouth: no lip lesion, mucus membranes moist Cardiovascular: Good distal perfusion in all 4 extremities Lungs: Breathing comfortably, no accessory muscle use Ext: no gross muscle atrophy, no edema, no contractures Neuro: no focal neuro deficits Psych: Alert and oriented Based on my assessment of this patient, this patient meets a high complexity level of care. Acute metabolic encephalopathy secondary to Effexor overdose Abdominal pain Transaminitis Suicidal ideation Resolved: Metabolic acidosis, hypoglycemia Suicidal precautions and 1:1 sitter. Continue D5 NS at 75 cc/hr for hypoglycemia. Telemetry monitoring. Ativan 1 mg IV Q4H PRN agitation. Psychiatry recommending Prolixin 5 mg PO Q6H PRN, 5 mg IM Q6H PRN. Morphine 4 mg IV Q4H PRN discontinued and switched to [place] 5 Q4H PRN. Seizure and Fall precautions. Psychiatry on board. Medically stable for discharge to MHU. CODE STATUS: FULL CODE. DVT Prophylaxis: GI Prophylaxis: Protonix IV Designated medical POA if patient is not able to make medical decisions for themselves: I have reviewed the following oracle hyperion consultant notes: I have reviewed the results of the following tests: CMP. CT AP I have ordered the following tests: I have discussed the care of this patient with the following independent historian: AMBROSE I have independently interpreted the following test below: I have discussed the management of this patient with the following physician: Objective - Vital Signs Vital signs: Vital Signs Temp 98.1 F 12/08/24 04:50 Pulse 78 12/08/24 08:00 Resp 16 12/08/24 08:00 BP 133/78 12/08/24 08:00 Pulse Ox 100 12/08/24 08:00 FiO2 Intake & Output 12/07/24 12/08/24 12/08/24 18:59 06:59 18:59 Intake Total 375 240 Balance 375 240 Weight 81.5 kg Intake: IV 375 Dextrose 5%-0.9% NaCl 1, 375 000 ml @ 75 mls/hr IV . [id number] INGE Rx#:[id number] Oral 0 240 Other: Voiding Method Toilet # Voids 2 - Labs CBC & Chem 7: 12/05/24 06:42 12/08/24 00:12 Labs: Abnormal Lab Results - Last 24 Hours (Table) 12/07/24 12/08/24 Range/Units 23:01 00:12 BUN 3 L (9-20) mg/dL Creatinine 0.64 L (0.66-1.25) mg/dL Glucose 104 H (74-99) mg/dL POC Glucose (mg/dL) 119 H (70-110) mg/dL AST 84 H (17-59) U/L
[2024-12-08] MEDS: oxyCODONE-APAP 7.5-325MG 1 EACH TAB PO PRN (17:10)
--- NOTE | 2024-12-08 17:37 | P.DS ---
Providers Date of admission: 12/04/24 20:37 Expected date of discharge: 12/08/24 Attending physician: Finesse Mcnair MD Consults: 12/04/24 20:33 Consult Physician Routine Consulting Provider: Psychiatry - [facility] Psychiatry Consult Reason/Comments: suicide attempt Do you want consulting provider notified?: Yes Primary care physician: Stated None Hospital Course: 39 year old M with PMH anxiety and depression presents to the ED for suicidal ideation and overdose on apparent 70+ Effexor tablets. In the ED he underwent extensive evaluation. T 97.9 F, [place] 152, RR 22, BP 126/98, O2 sat 99% on 2 L nasal cannula. CBC, CMP significant for WBC 12, Hct 53.2, bicarb 17, AST 159, alb 5.3. CPK 184. Lactic acid 1.9. Mag 2.4. Phos 3.6. EKG sinus tachycardia rate of 140 with nonspecific T wave changes. UA trace protein 1+ ketones. UDS + opiates, PCP, benzo, THC. Salicylate and Acetaminophen neg. EtOH neg. He has been admitted for further workup and management. Patient received IV hydration. Serial EKGs did not show prolonged QTc. He did have some abdominal pain, CT AP shows some ventral hernias with no acute process. He did have an elevated lipase and amylase which normalized when repeated. Psych evaluated, plans for [facility]HU. 12/07 Patient was seen and examined. Much more awake and alert. He reports RLQ pain and requesting pain medications. EKG done yesterday showed NSR with QTC of 427. CMP significant for 3, Cr 0.64, glu 104, AST 84. Lipase 89. CT AP shows some ventral hernias with no acute process. Patient is medically cleared for transfer to [facility]. Vitals: BP 133/78, T 98.1F, HR 78, RR 16, 100% on RA General: non toxic, no distress, appears at stated age Derm: warm, dry Head: atraumatic, normocephalic, symmetric Mouth: no lip lesion, mucus membranes moist Cardiovascular: Good distal perfusion in all 4 extremities Lungs: Breathing comfortably, no accessory muscle use Ext: no gross muscle atrophy, no edema, no contractures Neuro: no focal neuro deficits Psych: Alert and oriented Discharge Diagnosis: Acute metabolic encephalopathy secondary to Effexor overdose Abdominal pain Transaminitis Suicidal ideation Resolved: Metabolic acidosis, hypoglycemia This complex discharge took 35 minutes to complete. Patient Condition at Discharge: Stable Plan - Discharge Summary New Discharge Prescriptions: No Action Venlafaxine HCl [Effexor] 225 mg PO DIRECTED Buprenorphine HCl/Naloxone HCl [Suboxone 8 mg-2 mg Sl Film] 1 film SL BID Vistaril(Unknown Dose) 1 dose PO DIRECTED Discharge Medication List Buprenorphine HCl/Naloxone HCl [Suboxone 8 mg-2 mg Sl Film] 1 film SL BID 12/04/24 [History] Venlafaxine HCl [Effexor] 225 mg PO DIRECTED 12/04/24 [History] Vistaril(Unknown Dose) 1 dose PO DIRECTED 12/04/24 [History] Follow up Appointment(s)/Referral(s): None,Stated [Primary Care Provider] - 1-2 days Activity/Diet/Wound Care/Special Instructions: [facility] / [address] [place] [address] Patient is only to be released to a secure inpatient psychiatric hospital or jail Discharge Disposition: TRANSFER TO PSYCH HOSP/UNIT
[2024-12-08 20:08] LABS: Glucose,Whole Blood 110 mg/dL (70-110)
[2024-12-08] MEDS: LORazepam 1 MG/0.5 ML VIAL IV PRN (21:57)
[2024-12-08] MEDS: LORazepam 1 MG/0.5 ML VIAL IM PRN (22:45)
[2024-12-09 05:49] LABS: Glucose,Whole Blood 94 mg/dL (70-110)
--- NOTE | 2024-12-09 10:22 | P.PN ---
Subjective Progress Note Date: 12/09/24 39 year old M with PMH anxiety and depression presents to the ED for suicidal ideation and overdose on apparent 70+ Effexor tablets. In the ED he underwent extensive evaluation. T 97.9 F, MS 152, RR 22, BP 126/98, O2 sat 99% on 2 L nasal cannula. CBC, CMP significant for WBC 12, Hct 53.2, bicarb 17, AST 159, alb 5.3. CPK 184. Lactic acid 1.9. Mag 2.4. Phos 3.6. EKG sinus tachycardia rate of 140 with nonspecific T wave changes. UA trace protein 1+ ketones. UDS + opiates, PCP, benzo, THC. Salicylate and Acetaminophen neg. EtOH neg. He has been admitted for further workup and management. Patient received IV hydration. Serial EKGs did not show prolonged QTc. He did have some abdominal pain, CT AP shows some ventral hernias with no acute process. He did have an elevated lipase and amylase which normalized when repeated. Psych evaluated, plans for MHU. 12/09 Patient was seen and examined. No acute events overnight. Discussed with Kishore BOGGS, no events. COVID neg. Medically stable for discharge to MHU. Vitals: BP 112/83, T 98.2F, HR 85, RR 18, 98% on RA General: non toxic, no distress, appears at stated age Derm: warm, dry Head: atraumatic, normocephalic, symmetric Mouth: no lip lesion, mucus membranes moist Cardiovascular: Good distal perfusion in all 4 extremities Lungs: Breathing comfortably, no accessory muscle use Ext: no gross muscle atrophy, no edema, no contractures Neuro: no focal neuro deficits Psych: Alert and oriented Based on my assessment of this patient, this patient meets a high complexity level of care. Acute metabolic encephalopathy secondary to Effexor overdose Abdominal pain possible mild pancreatitis Transaminitis Suicidal ideation Resolved: Metabolic acidosis, hypoglycemia Suicidal precautions and 1:1 sitter. Continue D5 NS at 75 cc/hr for hypoglycemia. Telemetry monitoring. Ativan 1 mg IV Q4H PRN agitation. Percocet 7.5-325 mg PO Q4H PRN for pain. Seizure and Fall precautions. Psychiatry on board. Medically stable for discharge to MHU. CODE STATUS: FULL CODE. DVT Prophylaxis: GI Prophylaxis: Protonix IV Designated medical POA if patient is not able to make medical decisions for themselves: I have reviewed the following engagement quality consultant notes: I have reviewed the results of the following tests: I have ordered the following tests: I have discussed the care of this patient with the following independent historian: EPS note. RN. I have independently interpreted the following test below: I have discussed the management of this patient with the following physician: Objective - Vital Signs Vital signs: Vital Signs Temp 98.2 F 12/08/24 23:25 Pulse 85 12/09/24 04:51 Resp 18 12/09/24 04:51 BP 112/83 12/09/24 04:51 Pulse Ox 98 12/09/24 04:51 FiO2 Intake & Output 12/08/24 12/09/24 12/09/24 18:59 06:59 18:59 Intake Total 240 780 Balance 240 780 Weight 80.6 kg Intake: Oral 240 780 Other: Voiding Method Toilet # Voids 2 - Labs CBC & Chem 7: 12/05/24 06:42 12/08/24 00:12
[2024-12-09 11:49] LABS: Glucose,Whole Blood 88 mg/dL (70-110)
[2024-12-09 16:52] LABS: Glucose,Whole Blood 87 mg/dL (70-110)
[2024-12-09 20:44] LABS: Glucose,Whole Blood 78 mg/dL (70-110)
[2024-12-10 00:55] VITALS: RESP 14
[2024-12-10 05:59] LABS: Glucose,Whole Blood 82 mg/dL (70-110)
[2024-12-10 07:39] VITALS: BP 122/74; PULSE 90; TEMP 98.5
[2024-12-10 12:14] LABS: Glucose,Whole Blood 129 mg/dL (70-110)
--- NOTE | 2024-12-10 12:17 | P.DS ---
Providers Date of admission: 12/04/24 20:37 Attending physician: Finesse Mcnair MD Consults: 12/04/24 20:33 Consult Physician Routine Consulting Provider: Psychiatry - [facility] Psychiatry Consult Reason/Comments: suicide attempt Do you want consulting provider notified?: Yes Primary care physician: Stated None Hospital Course: Discharge Diagnosis: Acute metabolic encephalopathy secondary to Effexor overdose Abdominal pain Transaminitis Suicidal ideation Resolved: Metabolic acidosis, hypoglycemia Hospital Course: 39 year old M with PMH anxiety and depression presents to the ED for suicidal ideation and overdose on apparent 70+ Effexor tablets. In the ED he underwent extensive evaluation. T 97.9 F, ND 152, RR 22, BP 126/98, O2 sat 99% on 2 L nasal cannula. CBC, CMP significant for WBC 12, Hct 53.2, bicarb 17, AST 159, alb 5.3. CPK 184. Lactic acid 1.9. Mag 2.4. Phos 3.6. EKG sinus tachycardia rate of 140 with nonspecific T wave changes. UA trace protein 1+ ketones. UDS + opiates, PCP, benzo, THC. Salicylate and Acetaminophen neg. EtOH neg. He has been admitted for further workup and management. Patient received IV hydration. Serial EKGs did not show prolonged QTc. He did handy ve some abdominal pain, CT AP shows some ventral hernias with no acute process. He did have an elevated lipase and amylase which normalized when repeated. Psych evaluated, patient is medically stable for discharge, plan is for transport to [facility]. Patient seen and examined at bedside. Vital signs reviewed and stable. Temperature 98.5, heart rate 90, BP 122/74, Sp O2 98% on room air. General: non toxic, no distress, appears at stated age Derm: warm, dry Head: atraumatic, normocephalic, symmetric Mouth: no lip lesion, mucus membranes moist Cardiovascular: Good distal perfusion in all 4 extremities Lungs: Breathing comfortably, no accessory muscle use Ext: no gross muscle atrophy, no edema, no contractures Neuro: no focal neuro deficits Psych: Alert and oriented A total of 40 minutes of time were spent preparing this complex discharge summary. Patient was discharged on 12/10/2024. Patient Condition at Discharge: Stable Plan - Discharge Summary New Discharge Prescriptions: No Action Venlafaxine HCl [Effexor] 225 mg PO DIRECTED Buprenorphine HCl/Naloxone HCl [Suboxone 8 mg-2 mg Sl Film] 1 film SL BID Vistaril(Unknown Dose) 1 dose PO DIRECTED Discharge Medication List Buprenorphine HCl/Naloxone HCl [Suboxone 8 mg-2 mg Sl Film] 1 film SL BID [History] Venlafaxine HCl [Effexor] 225 mg PO DIRECTED 12/04/24 [History] Vistaril(Unknown Dose) 1 dose PO DIRECTED 12/04/24 [History] Follow up Appointment(s)/Referral(s): None,Stated [Primary Care Provider] - 1-2 days Activity/Diet/Wound Care/Special Instructions: [facility] Group Home staff to transport patient on 12/10/24 Discharge Disposition: TRANSFER TO PSYCH HOSP/UNIT
== END 2024-12-10 13:22 | DRG 817 ==
LOC: EC 19:04 → EEVIPCON 20:37 → 3SCARD 20:37
PROVIDERS: ADMIT Internal Medicine; ATTEND Internal Medicine
DX: T43.212A Poisoning by selective serotonin and norepinephrine reuptake inhibitors, intentional self-harm, initial encounter (principal); R10.84 Generalized abdominal pain; R74.01 Elevation of levels of liver transaminase levels; E87.20 Acidosis, unspecified; E16.2 Hypoglycemia, unspecified; K43.9 Ventral hernia without obstruction or gangrene; F17.200 Nicotine dependence, unspecified, uncomplicated; F32.A Depression, unspecified; F12.10 Cannabis abuse, uncomplicated; G93.41 Metabolic encephalopathy; Z88.8 Allergy status to other drugs, medicaments and biological substances; Z88.9 Allergy status to unspecified drugs, medicaments and biological substances; Z65.3 Problems related to other legal circumstances; Z78.1 Physical restraint status
CPT/HCPCS: 36415; 51702; 51798; 74177; 80048; 80053; 80143; 80179; 80306; 80320; 81003; 82150; 82550; 82803; 83605; 83690; 83735; 84100; 84484; 85025; 87635; 93005; 96361; 96372; 96374; 96375; 96376; 99291